=== PATIENT | male | born 1945 | race Caucasian/White ===

== ENCOUNTER 2017-06-21 22:40 | Emergency (ER) | payer MEDICARE ==
[~2017-06-21] VITALS: Ht 180.3 cm; Wt 104.3 kg
[2017-06-21] MEDS ORDERED: ALLOPURINOL300 MG PO (22:56)
== END 2017-06-22 01:50 | disposition home or self-care (01) ==
LOC: ED 22:40
DX: K52.9 Noninfective gastroenteritis and colitis, unspecified (principal); I10 Essential (primary) hypertension; Z79.899 Other long term (current) drug therapy
CPT/HCPCS: 80053; 81001; 82150; 83690; 85025; 96361; 96374; 99283; J2405; J7030